=== PATIENT | male | born 1970 | race Caucasian/White ===

== ENCOUNTER 2025-07-05 16:20 | Emergency (ER) | payer OTHER ==
[~2025-07-05 16:20] MED LIST: AUGMENTIN 875 M1 TAB PO; MEDROL DOSEPAK4 MG PO; PROVENTIL0.09 MG/AC IH; SEPTRA DS 800 M1 TAB PO; TRAMADOL HCL50 MG PO; VICODIN 500 MG-1 TAB PO; ZITHROMAX Z PA250 MG PO
[2025-07-05 17:04] VITALS: BP 133/74
[2025-07-05] MEDS ORDERED: Acetaminophen/Oxycodone 5 MG/325 MG TABLET PO ONE ×2 (17:40→22:30)
[2025-07-05 17:51] LABS: BASO # 0.1 10*3/uL (0.0-0.1); BASO % 0.7 % (0.0-1.0); EOS # 0.5 10*3/uL (0.0-0.4); EOS % 2.3 % (1.0-4.0); MEAN CELL VOLUME 92.9 fl (80.0-94.0); MEAN CORPUSCULAR HGB 29.3 pg (27.0-31.0); MEAN PLATELET VOLUME 9.4 fl (9.6-12.3); MONO # 1.4 10*3/uL (0.1-1.0); MONO % 7.2 % (3.0-9.0); NEUT # 13.5 10*3/uL (2.3-7.9); NEUT % 68.8 % (47.0-73.0); NUCLEATED RED BLOOD CELL 0.0 % (0.0-0.0); NUCLEATED RED BLOOD CELL 0.0 10*3/uL (0.0-0.0); PLATELET COUNT AUTOMATED 313 10*3/uL (130-400); RED CELL DISTRI WIDTH 14.7 % (0-14.5)
[2025-07-05 18:10] LABS: BUN 13 mg/dl (9-23)
[2025-07-05] MEDS ORDERED: IOHEXOL 300 MG/ML 100 ML VIAL IV ONE (19:10)
[2025-07-05 21:52] LABS: BILIRUBIN Negative (Negative); BLOOD Negative (Negative); CLARITY Clear (Clear); COLOR Yellow (Yellow); KETONE Negative (Negative); LEUKO ESTERASE Negative (Negative); NITRITE Negative (Negative); PH 8.0 (4.5-8.0); SPECIFIC GRAVITY >= 1.030 (1.001-1.030); UROBILINOGEN 1.0 E.U./dl (0.0-1.0)
[2025-07-05 21:57] LABS: WBC 0-2 wbc/hpf (0-5)
[2025-07-05] MEDS ORDERED: PERCOCET 5-3251 EACH PO (22:24)
[2025-07-05] MEDS ORDERED: METHOCARBAMOL750 M1 PO (22:24)
[2025-07-05] MEDS ORDERED: PREDNISONE20 M1 PO (22:24)
[2025-07-05] MEDS ORDERED: METHOCARBAMOL 500 MG TAB PO ONE (22:30)
== END 2025-07-05 22:31 | disposition home or self-care (01) ==
LOC: ED 16:20
PROVIDERS: Nurse Practitioner Family
DX: M54.31 Sciatica, right side (principal); E88.89 Other specified metabolic disorders; R93.5 Abnormal findings on diagnostic imaging of other abdominal regions, including retroperitoneum